=== PATIENT | male | born 1980 | race Caucasian/White ===

== ENCOUNTER 2017-12-27 16:41 | Inpatient (IN) ==
[2017-12-27] MEDS ORDERED: Naloxone 0.4 MG/ML INJ IVP PRN (20:21)
[2017-12-27] MEDS ORDERED: *HR* OxyCODONE Immed Rel 5 MG TABLET PO PRN (20:21)
[2017-12-27] MEDS ORDERED: traMADol 50 MG TABLET PO PRN (20:21)
[2017-12-27] MEDS ORDERED: Acetaminophen 325 MG TABLET PO PRN (20:21)
[2017-12-27] MEDS ORDERED: 0.9 % Sodium Chloride w KCl 20 MEQ/1,000 ML MLS IVC SCH (20:30)
[2017-12-27] MEDS ORDERED: Vancomycin (wt based) 1,000 MG VIAL IVPB SCH (21:00)
[2017-12-27] MEDS: 0.9 % Sodium Chloride 1,000 ML IVC SCH (21:03)
--- NOTE | 2017-12-27 21:08 | Orthopedic Consult Note ---
Date of Encounter: 12/27/17 Time of Encounter: 21:06 History of Present Illness Chief complaint: Left arm pain and swelling with numbness in fingers HPI: Mr. Price is a 37 year old [id number] male with about a 3-4 day history of pain and swelling about the left arm especially focused at the elbow. Patient states that he had self injected methamphetamine in the left arm. He noticed progressive pain and swelling and difficulty with range of motion. He also states that he had injured it the night before when he fell. He also describes diminished sensation in all the fingers. He was seen initially a [facility] and was noted to have a significant infection in the left upper extremity, sent to [facility] for definitive management. I reviewed the patient's history and physical data as well as the completed medical record including all studies completed including [facility]. Patient's orthopedic history is significant for a total hip arthroplasty with an infection requiring explantation, intravenous antibiotics and then a secondary replantation of his hip prosthesis. Pulse of approximately 115 and a temperature of 100.1. Examination of the left upper extremity reveals the upper arm to be edematous though the compartments are soft. The left elbow reveals marked tenderness and fullness in what appears to be a fluctuant area on the medial side of the elbow. There is fluid in the olecranon bursa as well. Forearm is somewhat tight. Movement of the fingers and hand is intact. There are scattered small scabs about the arm. Laboratory data obtained today at [facility] included a WBC count of 29.1 with 24% neutrophils. Pro time was slightly elevated at 14. He did had not have an elevated CK at 247. Drug screen was positive for amphetamines and THC. I reviewed the images of a CT scan. This reveals a large area along the medial aspect of the elbow consistent with a abscess cavity. There is significant edema within the soft tissues of the forearm. No definitive abscess within the extensor compartment. Significant anomalies present within the flexor aspect of the forearm. Sensation is grossly intact with some subjective diminished sensation. Finger motion is intact though painful. Appears to be spared vascular status. Impression: Abscess left elbow with possible volar forearm compartment involvement Recommendations: Would proceed with urgent incision and drainage of the arm. This would include the elbow and possibly more extension into the forearm depending upon the appearance of the compartments. Patient is aware that he may require multiple procedures and he may not have definitive treatment with a singular procedure. Patient has been started on intravenous antibiotics. Going to proceed with surgery tonight when operating room staff arrives. I did career guidance counselor the patient on the concerns for infection in a prosthetic joint. He is already sustained an infection with a staged explantation and reimplantation. I did advise him that he may not be able to have this done again due to bone loss or other concerns. Thank you for allowing me to seen care for Mr. Price. Sincerely, Heber Kaur,DO Past Med Surg Social Fam HX - Past Medical History Medical history: non-contributory Psychiatric history: no psych history - Past Surgical History Additional surgical history: left shoulder. left hip replacement X 3. dental - Social History Smoking Status: Former smoker Smokeless Tobacco Status: No Alcohol use: none Drug use: unknown - Family History Mother Living Status: Still Living Hx Family Cardiac Disorders: No Hx Family Respiratory Disorders: No Hx Family Cancer: No Hx Family GI Disorders: No Hx Family Genitourinary Disorders: No Hx Family Endocrine Disorder: No Hx Family Musculoskeletal Disorders: No Hx Family Neuromuscular Disorders: No Hx Family Neurologic Disorders: No Hx Family HEENT Disorders: No Hx Family Autoimmune Disorders: No Hx Family Reproductive Disorders: No Hx Family Psychosocial Disorders: No Hx Family Medical Disorders: No Medications and Allergies No Known Home Drugs 12/27/17 [History] 3 Allergy/AdvReac Type Severity Reaction Status Date / Time sulfamethoxazole Allergy Anaphylaxis Verified 06/19/15 14:27 [From Bactrim] trimethoprim [From Bactrim] Allergy Anaphylaxis Verified 06/19/15 14:27 All Systems Reviewed: The remainder of the systems were reviewed and are negative Physical Exam - Constitutional Vitals: Temp Pulse Resp BP Pulse Ox 100.1 F H 114 14 127/97 97 12/27/17 20:12 12/27/17 20:12 12/27/17 20:12 12/27/17 20:12 12/27/17 20:12 Results - Labs Labs: All other labs normal. Consult Discharge Plan - Plan Referrals: NONE,PCP [Primary Care Provider] -
--- NOTE | 2017-12-27 21:45 | Anesthesia Evaluation PreOp ---
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: Denies Any Significant HX Other Medical History: Denies Any Significant HX Anesthesia History: No Prior Anesthetic Complications Alcohol Use: none Drug use: unknown Medications and Allergies No Known Home Drugs 12/27/17 [History] 3 Allergy/AdvReac Type Severity Reaction Status Date / Time sulfamethoxazole Allergy Anaphylaxis Verified 06/19/15 14:27 [From Bactrim] trimethoprim [From Bactrim] Allergy Anaphylaxis Verified 06/19/15 14:27 - Meds/Allergy Pre-op Review Medications Reviewed: Yes Allergies Reviewed: Yes Beta Blockers on Current Med List: No Anesthesia Results - Labs Laboratory Tests 12/27/17 12/27/17 13:34 13:34 Hgb 14.7 Hct 43.0 Plt Count 320 Sodium 130 L Potassium 3.8 BUN 6 Creatinine 0.70 Anesthesia Exam O2 Sat O2 Sat by Pulse Oximetry 97 Vital Signs Temp Pulse Resp BP Pulse Ox 100.1 F H 114 14 127/97 97 12/27/17 20:12 12/27/17 20:12 12/27/17 20:12 12/27/17 20:12 12/27/17 20:12 Height: 5'3 Weight: 160 lbs Pain Scale: 3 - HEENT Pupil (Motor): Pupils equal, EOMI Mallampati: I Oral Opening: Greater than 3 - BURRING WHEEL OPERATOR LOC: Oriented BURRING WHEEL OPERATOR Motor: Normal RUE, Normal LUE, Normal RLE, Normal LLE, Normal Face BURRING WHEEL OPERATOR Sensory: Normal: RUE, LUE, RLE, LLE, Face - Cardiac Rhythm: Regular Murmur: None JVD: No Carotid Bruit: No - Pulmonary Breath Sounds: bilateral Clear Respiratory Effort: Symmetrical Anesthesia Assess/Plan ASA Score: 2, E Modified [place] Scale for Level of Consciousness: Cooperative, oriented, and tranquil Anesthetic Plan: General Monitoring Plan: Standard Monitors Recovery Plan: PACU (Discussed GA, agrees to proceed)
[2017-12-27] MEDS ORDERED: *HR* Propofol 200 MG/20 ML VIAL IVP ONE (21:53)
[2017-12-27] MEDS ORDERED: Ondansetron 4 MG/2 ML VIAL ONE (21:53)
[2017-12-27] MEDS ORDERED: *HR* FentaNYL (PF) 100 MCG/2 ML VIAL ONE (21:53)
[2017-12-27] MEDS ORDERED: Lidocaine -MPF 2% 2 ML VIAL ONE (21:53)
[2017-12-27] MEDS ORDERED: Dexamethasone 4 MG/ML VIAL ONE (21:53)
[2017-12-27 21:54] LABS: INR 1.3; Prothrombin Time 14.5 Seconds (9.4-12.1)
[2017-12-27] MEDS ORDERED: Famotidine 20 MG/2 ML VIAL ONE (21:55)
[2017-12-27] MEDS ORDERED: Acetaminophen IV 1,000 MG/100 ML INFUS..BTL ONE (21:55)
[2017-12-27 21:57] LABS: Activated Partial Thrombo Time 31.8 Seconds (26.0-36.0)
--- NOTE | 2017-12-27 21:58 | Internal Med History&Physical ---
Date of Encounter: 12/27/17 Time of Encounter: 20:00 Internal Medicine - H&P: HPI Chief complaint: left elbow pain/swelling Admitted From: Hospital to Hospital Transfer Plans for Post Hospital Care: Home History of present illness: Mr. Price is a 37 year old male who [facility] for concerns of left elbow abscess, cellulitis, and possible development of compartment syndrome. Symptoms started about 3-4 days ago when he was shooting up methamphetamine into his left elbow. Because of the pain, swelling, redness, and intensity over last few days, he came to ER today at [facility]. He underwent CAT scan imaging, routine labs, and IV antibiotic administration. Transfer request was [facility] to [facility] for definitive care. Transfer center spoke with Dr. Kaur and our daytime hospitalist who agreed to accept patient in transfer. Upon arrival, I saw patient immediately and assessed him. He confirms above history. He has been having significant pain and swelling to his left elbow. By my assessment, clinically, I do not feel he has compartment syndrome as he has palpable pulse of his left radial artery and is able to move his hand. However, he does have a decreased pulse compared his right arm. Additionally, he does have tense swelling and pain of his left forearm. I called Dr. Kaur right away after assessing the patient. Dr. Kaur has arrived to the hospital already and is taking him to surgery this evening. Patient admits to having had fevers and chills. He denies any numbness of his left hand/forearm. However, he does complain of weakness and worsening pain and pressure of his forearm. He denies any chronic medical problems. However, he did have a hip replacement several years ago. This was infected and had to be removed surgically and then he had to have another hip replacement several weeks thereafter. He completed 10 weeks of IV antibiotics prior to his reimplanted hip prosthesis. He denies any history of endocarditis, HIV, hepatitis B, hepatitis C. He uses heroin roughly twice per week by injection and seldom uses methamphetamine. Past Med Surg Social Fam HX - Past Medical History Attestation: Yes The following information was validated with the patient. Source: patient, old records reviewed, other ([facility] records) Medical history: no medical history Additional medical history: chronic IVDA Psychiatric history: no psych history - Past Surgical History Surgical History: hip replacement Additional surgical history: left shoulder. left hip replacement X 3. dental - Social History Smoking Status: Former smoker Smokeless Tobacco Status: No Alcohol use: none Drug use: methamphetamine, IV Drug Use (mostly heroin) Activity Level: Independent ambulation Recent Out of Country Travel Within the Last 8 Weeks: No - Family History Mother Living Status: Still Living Hx Family Cardiac Disorders: No Hx Family Respiratory Disorders: No Hx Family Cancer: No Hx Family GI Disorders: No Hx Family Genitourinary Disorders: No Hx Family Endocrine Disorder: No Hx Family Musculoskeletal Disorders: No Hx Family Neuromuscular Disorders: No Hx Family Neurologic Disorders: No Hx Family HEENT Disorders: No Hx Family Autoimmune Disorders: No Hx Family Reproductive Disorders: No Hx Family Psychosocial Disorders: No Hx Family Medical Disorders: No Internal Medicine - H&P: Meds No Known Home Drugs 12/27/17 [History] 3 Allergy/AdvReac Type Severity Reaction Status Date / Time sulfamethoxazole Allergy Anaphylaxis Verified 06/19/15 14:27 [From Bactrim] trimethoprim [From Bactrim] Allergy Anaphylaxis Verified 06/19/15 14:27 - Constitutional Constitutional: chills, fever(s), no night sweats - EENT Eyes: no change in vision Ears: no ear pain, no tinnitus Nose, mouth and throat: no nasal congestion, no sinus pressure, no sore throat - Cardiovascular Cardiovascular ROS IM: no chest pain, no dyspnea - Respiratory Respiratory: no cough, no hemoptysis, no chest congestion, no excessive phlegm production - Gastrointestinal Gastrointestinal: nausea, no abdominal pain, no diarrhea, no hematemesis, no hematochezia, no melena, no vomiting - Genitourinary Genitourinary ROS male: no dysuria, no flank pain, no hematuria - Musculoskeletal Musculoskeletal ROS IM: arthralgias (left elbow), limited range of motion (left arm), muscle weakness (left hand/forearm), no numbness - Integumentary Integumentary IM: no jaundice - Neurological Neurological ROS: no convulsions, no dizziness, no frequent falls, no headache(s ) - Psychiatric Psychiatric: no anxiety, no depression - Endocrine Endocrine IM: no polydipsia, no polyuria - Allergic/Immunologic Allergic/Immunologic: no wheezing, no GI upset with certain foods - Constitutional Vitals: Temp Pulse Resp BP Pulse Ox 100.1 F H 114 14 127/97 97 12/27/17 20:12 12/27/17 20:12 12/27/17 20:12 12/27/17 20:12 12/27/17 20:12 General appearance: Present: cooperative, A&O X 3, severe distress (left elbow/ forearm pain), answers questions appropriately Exam: see below - Head Head exam: Present: atraumatic, normal inspection - Eye Eye exam: Present: EOMI, PERRL. Absent: scleral icterus Pupils: Present: normal accommodation - ENT ENT exam: Present: mucous membranes dry, normal oropharynx Additional comments: poor dentition with several caries/missing teeth - Neck Neck exam general surgery: Present: full ROM, supple. Absent: tenderness, nuchal rigidity, thyromegaly - Respiratory Respiratory exam: Present: CTAB. Absent: chest wall tenderness, rales, rhonchi , wheezes - Cardiovascular Cardiovascular exam: Present: distant heart sounds, RRR, +S1, +S2, tachycardia. Absent: diastolic murmur, systolic murmur - GI/Abdominal GI/Abdominal exam: Present: normal bowel sounds, soft. Absent: hepatomegaly, mass, splenomegaly, tenderness - Extremities Exam Extremities exam: Present: normal capillary refill, warm. Absent: calf tenderness, pedal edema Additional comments: left elbow/forearm red, warm, tense, very tender with very limited ROM; palpable left radial pulse (weaker than right); normal sensation; weakness in left hand compared to right - Back Exam Back exam: Absent: CVA tenderness (L), CVA tenderness (R) - Neurological Exam Neurological exam: Present: alert, CN II-XII intact, oriented X3 Additional comments: weakness left hand/forearm as noted above - Psychiatric Psychiatric exam: Present: normal affect, normal mood - Skin Skin exam: Present: dry, warm Additional comments: cellulitis/abscess left elbow/forearm Internal Med - H&P Results - Labs Labs: I reviewed the labs a Mona and they include the following: WBC 29.1 Hemoglobin 14.7 Hematocrit 43.0 Platelet 320 PT 14.0 INR 1.2 Sodium 130 Potassium 3.8 Chloride 98 Carbon dioxide 22 BU when 6 Creatinine 0.70 Glucose [address] left arm/elbow: Report reviewed concerning for cellulitis, flexor and extensor myositis with compartment myositis. Additionally, is a 5.7 centimeter abscess of the left medial elbow. - Assessment and plan (1) Severe sepsis Current Visit: Yes Status: Acute Assessment and plan: 1. Blood cultures ordered. 2. Fluid resuscitation ordered. 3. Will trend lactate levels. 4. Will treat with IV Vancomycin and Zosyn. 5. Follow blood cultures and wound cultures from surgery. 6. Likely needs if blood cultures +; high concern for tricuspid valve endocarditis. 7. Monitor on telemetry. 8. Continue maintenance IVF after fluid boluses. (2) Abscess of skin or subcutaneous tissue Current Visit: Yes Status: Acute Assessment and plan: 1. I spoke and met with Dr. Kaur who saw patient shortly after I saw him. 2. Patient is going to surgery this evening per Dr. Kaur. 3. Wound cultures in OR. 4. Antibiotics as above. Qualifiers: Site of cutaneous abscess: extremity Site of cutaneous abscess of extremity : upper extremity Laterality: left Qualified Code(s): L02.414 - Cutaneous abscess of left upper limb (3) Substance abuse Current Visit: Yes Status: Chronic Assessment and plan: 1. Patient counseled on the need to quit/seek treatment. 2. Patient at risk for heroin withdrawal. 3. Will treat pain with tramadol (moderate) and oxycodone (severe). He may need IV Opiate pain control. 4. Monitor for signs/symptoms of endocarditis. 5. Consult social scientist to assist for drug rehab if he is interested. (4) DVT prophylaxis Current Visit: Yes Status: Acute Assessment and plan: 1. Heparin SQ.
[2017-12-27] MEDS ORDERED: Acetaminophen IV 1,000 MG/100 ML INFUS..BTL IVPB ONE (22:06)
[2017-12-27] MEDS ORDERED: Famotidine 20 MG/2 ML VIAL IVP ONE (22:06)
[2017-12-27] MEDS ORDERED: Albuterol 2.5 MG/3 ML NEBULIZER IH ONE (22:07)
[2017-12-27] MEDS ORDERED: Albuterol 2.5 MG/3 ML NEBULIZER ONE (22:08)
[2017-12-27] MEDS ORDERED: *HR* HYDROmorphone (PF) 1 MG/ML SYRINGE ONE (22:16)
[2017-12-27] MEDS ORDERED: Ketorolac 30 MG/ML VIAL ONE (23:09)
--- NOTE | 2017-12-27 23:30 | Operative Note ---
Date of procedure: 12/27/17 Pre-op diagnosis: Abscess left elbow Post-op diagnosis: same Procedure: 1. Incision and drainage left elbow and forearm 2. Incision and drainage left olecranon bursa Implants: None Complications: None Anesthesia: BERNARDA Surgeon: Heber Kaur Was there an optical assistant present: No Estimated blood loss (cc): 17 Tourniquet Time (Minutes): 27 (250 mmHg) Specimen: Cultures Condition: stable Disposition: PACU Procedure in Detail: Gross findings: Preoperative examination revealed tremendous amount of swelling in the left forearm with a fluctuant area along the medial side of the elbow and in the proximal third of the volar aspect of the forearm. Preoperative CT scanning was consistent with an abscess in the medial aspect of the left elbow. Intraoperative findings revealed tremendous amount of edema in the subcutaneous tissues with a large abscess cavity at the medial aspect of the elbow just anterior to the medial upper condyle. Large amount of purulent material was encountered and evacuated. The abscess was noted to extend into the antecubital fossa and into the forearm compartment. This was dissected with blunt finger dissection. A second incision and drainage site was created over the radial volar forearm where the compartment was opened where a large amount of edema fluid was again encountered and digital dissection was carried over from both the medial elbow and from this incision to allow for irrigation through the tunnels. The olecranon bursa was full of fluid and went opened revealed a marked amount of bursal fluid without purulence. All 3 wounds were packed with iodoform packing. The medial elbow and the volar forearm wound had a few suture of 3-0 Prolene placed to loosely approximate a portion of the wound. Procedure: Patient was taken the operating room and transferred from the hospital bed to the operating room table. Patient now was administered a general anesthesia with smooth induction with atraumatic intubation. Once adequate level anesthesia had been obtained, the left upper extremity is prepped and draped in normal standard fashion with a tourniquet placed high about the upper arm in a sterile fashion. The tourniquet was inflated after the arm was elevated for exsanguination. Approximately 4 cm incision was created over the medial aspect of the elbow. This was just anterior to the medial upper condyle. The very thick subcutaneous tissue was noted with tremendous amount of inflammatory changes and edema. Dissection was ultimately carried bluntly into the abscess cavity was a large amount of thick purulent material was encountered. Cultures were obtained at this time. The cavity was evacuated of fluid and irrigated initially. Due to persistent swelling in the more volar and distal forearm a second incision was created in the radial volar aspect of the forearm proximally. Dissection was carried to the subtendinous tissue again a thickened subtendinous tissue was noted. Marked edema fluid was encountered. The fascia was opened and the muscle appeared to be intact with the [place] of swelling and edema noted. From the medial elbow digital dissection was performed breaking up some septations and allowing more purulent material to be expressed. Finger dissection was carried from the second incision meeting the opposite hand and at this time a tunnel was created. This was now irrigated with saline solution removing as much debris and purulent material as able. This was completed until the swelling flowed clear. At this time the olecranon bursa was noted be markedly fluid filled therefore approximately 1/2 cm incision was made directly over the bursa with chapito fluid expressed. This was evacuated. At this time all wounds are now packed with 1/2 inch iodoform packing. The volar forearm the medial elbow incision with then loosely approximated with just a few suture of 3-0 Prolene. Sterile dressings consisting of 4 x 4's Kerlix and ABDs were now applied and secured. Tourniquet was now deflated. Patient was now awakened from anesthesia extubating operating room and transferred to the postanesthesia care unit in stable and satisfactory condition. All sponge and needle evidence for counts are correct. Specimens for pathology were the cultures obtained.
--- NOTE | 2017-12-27 23:50 | Anesthesia Evaluation Post Op ---
Date of Encounter: 12/27/17 Time of Encounter: 23:50 - Vital Signs Vital Signs: Vital Signs/O2 Sat/Glucose, Most Current Temp Pulse Resp BP Pulse Ox 12/27/17 23:42 104 16 143/93 94 12/27/17 23:32 105 10 134/89 96 12/27/17 23:22 98.3 F 96 10 129/77 99 12/27/17 20:12 100.1 F H 114 14 127/97 97 - Lungs Lungs: Clear Ascult./Percussion - Airway Airway: Non-obstructed - Cardiovascular Regular Rate - Mental Status Mental Status: Alert & Oriented, Answers Appropriately - Pain Pain Scale: 1 - Nausea Vomiting Nausea Vomiting: Not Present - Hydration Hydration: Ice chips - Discharge PostOp Status: Transfer Patient to floor
[2017-12-28] MEDS ORDERED: Piperacillin/Tazobactam 3.375 GM in 0.9 % Sodium Chloride Mini Bag 100 ML IVPB SCH
[2017-12-28] MEDS ORDERED: Acetaminophen 325 MG TABLET PO PRN (00:24)
[2017-12-28] MEDS ORDERED: Famotidine 20 MG/2 ML VIAL IVP ONE (00:24)
[2017-12-28] MEDS ORDERED: Naloxone 0.4 MG/ML INJ IVP PRN (00:24)
[2017-12-28] MEDS ORDERED: Acetaminophen IV 1,000 MG/100 ML INFUS..BTL IVPB ONE (00:24)
[2017-12-28 01:05] LABS: Basophils # 0.1 K/mcL (0.0-0.2); Basophils % 0.3 %; Eosinophils # 0.1 K/mcL (0.0-0.6); Eosinophils % 0.3 %; Hematocrit 39.7 % (37.5-50.1); Hemoglobin 13.3 g/dL (12.9-16.9); Immature Granulocytes % 0.9 % (0-4); Lymphocytes # 0.9 K/mcL (0.6-4.6); Lymphocytes % 4.6 %; Mean Corpuscular HGB Conc 33.5 g/dL (31.6-35.5); Mean Corpuscular Hemoglobin 31.8 pg (28.0-33.3); Mean Platelet Volume 10.1 fL (9.4-12.4); Monocytes # 1.1 K/mcL (0.0-1.3); Monocytes % 5.3 %; Neutrophils # 18.3 K/mcL (1.6-8.9); Platelet Count 236 K/mcL (140-400); Red Blood Count 4.18 M/mcL (4.19-5.50); Red Cell Distribution Width 13.8 % (11.5-14.5); Segmented Neutrophils % 88.6 %
[2017-12-28] MEDS: 0.9 % Sodium Chloride 1,000 ML IVC SCH ×2 (01:16→07:16)
[2017-12-28 01:27] LABS: Alanine Aminotransferase 44 Units/L (7-52); Albumin 2.9 g/dL (3.5-5.7); Albumin/Globulin Ratio 0.9 (1.1-2.2); Alkaline Phosphatase 26 Units/L (34-104); Aspartate Amino Transferase 33 Units/L (13-39); BUN/Creatinine Ratio 10 (6-26); Bilirubin,Total 0.5 mg/dL (0.3-1.0); Blood Urea Nitrogen 6 mg/dL (6-20); Carbon Dioxide 23 mEq/L (23-29); Chloride 106 mEq/L (98-107); Globulin 3.1 g/dL (2.4-3.5); Glucose 125 mg/dL (70-105); Magnesium 1.5 mg/dL (1.6-2.6); Osmolality,Calculated 281 (280-300); Potassium 3.8 mEq/L (3.5-5.1); Sodium 136 mEq/L (136-145); eGFR For Non-African Americans > 60 (> 60)
[2017-12-28] MEDS: 0.9 % Sodium Chloride w KCl 20 MEQ/1,000 ML MLS IVC SCH ×2 (01:31→08:48)
[2017-12-28] MEDS: Piperacillin/Tazobactam 3.375 GM in 0.9 % Sodium Chloride Mini Bag 100 ML IVPB SCH ×4 (01:38→23:08)
[2017-12-28] MEDS ORDERED: *HR* Heparin 5,000 UNIT/ML VIAL SQ SCH (06:00)
[2017-12-28] MEDS: *HR* Heparin 5,000 UNIT/ML VIAL SQ SCH ×2 (06:04→16:45)
[2017-12-28] MEDS: *HR* OxyCODONE Immed Rel 5 MG TABLET PO PRN ×2 (08:50→19:51)
[2017-12-28] MEDS: traMADol 50 MG TABLET PO PRN ×2 (12:19→23:08)
--- NOTE | 2017-12-28 13:33 | Internal Med Progress Note ---
Hospitalist Progress Note - Encounter Date of Encounter: 12/28/17 Time of Encounter: 13:20 - Subjective Interval History: H&P noted. Patient with a history of IV drug use is admitted for left elbow abscess, cellulitis, and possible development of compartment syndrome. Underwent I&D of left elbow, forearm as well as olecranon bursa last night. Intraoperatively, he was noted to have tremendous amount of edema in the subcutaneous tissues with a large abscess cavity at the medial aspect of the elbow. Another I&D at radial volar forearm. Large amount of bursal fluid without purulence. Started on broad-spectrum antibiotics overnight which patient is tolerating well. Other than mild, expected postop pain, he does not have any new complaints. Denies any fever or chills. - Exam Vitals: Temp Pulse Resp BP Pulse Ox 97.7 F 78 17 112/80 98 12/28/17 11:38 12/28/17 11:38 12/28/17 11:38 12/28/17 11:38 12/28/17 11:38 Exam: General appearance: Present: cooperative, A&O X 3 - Respiratory Respiratory exam: Present: CTAB. Absent: chest wall tenderness, rales, rhonchi , wheezes - Cardiovascular Cardiovascular exam: Present: distant heart sounds, RRR, +S1, +S2, tachycardia. Absent: diastolic murmur, systolic murmur - GI/Abdominal GI/Abdominal exam: Present: normal bowel sounds, soft. Absent: hepatomegaly, mass, splenomegaly, tenderness - Extremities Exam LUE: in sling, dressing clean and intact. Neurovascularly intact. - Assessment and Plan (1) Sepsis Current Visit: Yes Status: Acute Assessment and Plan: Presented with low-grade temperature of 99.4, tachycardia, and leukocytosis of > 20 in the setting of left elbow abscess and extensive left upper extremity myositis/cellulitis underwent I&D by ortho yesterday started on vanc/zosyn, continue CT of the left upper extremity also revealed a solitary 1.6 cm focus of consolidation in the left upper lobe which may represent pneumonia or possible developing septic emboli given his risk factors, will also obtain TTE -> may also need BAN if negative for vegetation blood cultures +ve for GPR, a/w final speciation and sensitivity intraop cultures pending WBC downtrending, not hypotensive, monitor clinically (2) Abscess of skin or subcutaneous tissue Current Visit: Yes Status: Inactive Assessment and Plan: Antibiotics as above, underwent I&D by orthopedics yesterday (3) Substance abuse Current Visit: Yes Status: Inactive Assessment and Plan: UDS positive for amphetamine and marijuana (4) DVT prophylaxis Current Visit: Yes Status: Acute Assessment and Plan: Heparin SQ - Time Spent with Patient Total time spent is greater than 50% in coordination of care (as documented) at patient's floor/unit and/or counseling patient: Plan of Care Discussed with: nurse Internal Medicine: Result - Labs CBC & Chem 7: 12/28/17 00:51 12/28/17 00:51 Labs: Short CBC 12/28/17 Range/Units 00:51 WBC 20.6 H (4.3-11.1) K/mcL Hgb 13.3 (12.9-16.9) g/dL Hct 39.7 (37.5-50.1) % Plt Count 236 (140-400) K/mcL Neutrophils # 18.3 H (1.6-8.9) K/mcL BMP 12/28/17 00:51 Sodium 136 Potassium 3.8 Chloride 106 Carbon Dioxide 23 BUN 6 Creatinine 0.63 L Glucose 125 H Calcium 8.0 L Liver Function 12/28/17 Range/Units 00:51 Total Bilirubin 0.5 (0.3-1.0) mg/dL AST 33 (13-39) Units/L ALT 44 (7-52) Units/L Alkaline Phosphatase 26 L (34-104) Units/L Albumin 2.9 L (3.5-5.7) g/dL - ABG Interpretation ABG results: PT/INR, D-dimer PT 14.5 Seconds (9.4-12.1) H 12/27/17 20:21 - VTE Documentation of Mechanical Device: Intermittent pneumatic compression device Consult Discharge Plan - Plan Referrals: NONE,PCP [Primary Care Provider] - (1) Sepsis Qualifiers: Sepsis type: sepsis due to unspecified organism Qualified Code(s): A41.9 - Sepsis, unspecified organism (2) Abscess of skin or subcutaneous tissue Qualifiers: Site of cutaneous abscess: extremity Site of cutaneous abscess of extremity: upper extremity Laterality: left Qualified Code(s): L02.414 - Cutaneous abscess of left upper limb
[2017-12-28] MEDS ORDERED: *HR* FentaNYL (PF) 100 MCG/2 ML VIAL IVP ONE (16:31)
--- NOTE | 2017-12-28 16:39 | Orthopedics Progress Note ---
Date of Encounter: 12/28/17 Time of Encounter: 16:35 Subjective Principal diagnosis: Abscess left arm Interval history: 12/28/2017. Patient is POD #1 (less than 24 hours) medial elbow abscess as well as incision and drainage of the olecranon bursa. Patient is feeling better. He is having some persistent numbness in all the fingers. Vital signs are stable. Patient is afebrile. Dressings were all taken down. Packing was removed. All wounds are healthy with no evidence of purulent drainage at this time. Minor serosanguineous drainage is emanating from the medial elbow wound. Distal neurosensory exam is mostly unchanged with predominantly subjective numbness. Forearm edema is improved. Hemoglobin is stable at 13.3. White blood cell count has dropped to 20.6. Neutrophils down to 18.3. Surgical cultures are pending. Impression POD #1 incision and drainage left elbow and forearm abscesses Recommendations: We will continue with dressing changes and wound care is necessary. I encouraged the patient to use an move his fingers as much as possible and to maintain elevation of the extremity. We will continue with the current IV antibiotics until a wound culture with the identification and sensitivities is available to fine tune the antibiotics selection. Objective Vital signs: Vital Signs Temp Pulse Resp BP Pulse Ox 12/28/17 11:38 97.7 F 78 17 112/80 98 12/28/17 09:16 96 12/28/17 09:00 98 12/28/17 07:37 97.8 F 90 18 115/80 98 12/28/17 05:15 97.6 F 85 18 110/66 97 12/28/17 01:44 98.4 F 96 16 127/80 96 12/28/17 00:32 98.4 F 105 16 139/73 94 12/28/17 00:02 98.3 F 98 16 138/90 93 12/27/17 23:52 98.7 F 105 16 143/88 94 12/27/17 23:42 104 16 143/93 94 12/27/17 23:32 105 10 134/89 96 12/27/17 23:22 98.3 F 96 10 129/77 99 12/27/17 20:12 100.1 F H 114 14 127/97 97 Intake and Output 12/28/17 12/28/17 12/28/17 07:59 15:59 23:59 Intake Total 1260 / 1260 480 / 480 Output Total 2350 / 2350 500 / 500 Balance -1090 / -1090 -20 / -20 Intake: IV Fluids 1200 / 1200 0.9 % Sodium Chloride 1,000 ML 1000 / 1000 @ 999 mls/hr IVC .Q1H1M [facility] [place] Rx# :[id number] Ofirmev 1,000 mg/100 ml 1,000 100 / 100 mg In 100 ml @ 400 mls/hr IVPB ONCE ONE Rx#:[id number] Zosyn 3.375 GM In 0.9 % Sodium 100 / 100 Chloride (Mini-Bag +) 100 ML @ 25 mls/hr IVPB Q8HR [facility] [place] Rx#: [id number] Oral 60 / 60 480 / 480 Output: Urine 2350 / 2350 500 / 500 Other: Meal Lunch Percent of Meal Consumed 100% # Voids 2 Weight 68.084 kg Patient Weight 12/28/17 23:59 Weight 68.084 kg Incision: draining - Labs CBC & BMP: 12/28/17 00:51 12/28/17 00:51 Labs: Abnormal lab results WBC 20.6 K/mcL (4.3-11.1) H 12/28/17 00:51 RBC 4.18 M/mcL (4.19-5.50) L 12/28/17 00:51 Neutrophils # 18.3 K/mcL (1.6-8.9) H 12/28/17 00:51 PT 14.5 Seconds (9.4-12.1) H 12/27/17 20:21 Creatinine 0.63 mg/dL (0.70-1.30) L 12/28/17 00:51 Glucose 125 mg/dL (70-105) H 12/28/17 00:51 Calcium 8.0 mg/dL (8.6-10.3) L 12/28/17 00:51 Magnesium 1.5 mg/dL (1.6-2.6) L 12/28/17 00:51 Alkaline Phosphatase 26 Units/L (34-104) L 12/28/17 00:51 Serum Total Protein 6.0 g/dL (6.4-8.9) L 12/28/17 00:51 Albumin 2.9 g/dL (3.5-5.7) L 12/28/17 00:51 Albumin/Globulin Ratio 0.9 (1.1-2.2) L 12/28/17 00:51 - VTE Documentation of Mechanical Device: Intermittent pneumatic compression device Consult Discharge Plan - Plan Referrals: NONE,PCP [Primary Care Provider] -
[2017-12-29] MEDS: *HR* OxyCODONE Immed Rel 5 MG TABLET PO PRN ×4 (01:47→21:07)
[2017-12-29] MEDS: *HR* Heparin 5,000 UNIT/ML VIAL SQ SCH ×2 (05:42→17:39)
[2017-12-29 06:47] LABS: Basophils # 0.1 K/mcL (0.0-0.2); Basophils % 0.3 %; Eosinophils # 0.1 K/mcL (0.0-0.6); Eosinophils % 0.3 %; Hematocrit 38.9 % (37.5-50.1); Hemoglobin 13.2 g/dL (12.9-16.9); Immature Granulocytes % 0.7 % (0-4); Lymphocytes # 2.7 K/mcL (0.6-4.6); Lymphocytes % 11.7 %; Mean Corpuscular HGB Conc 33.9 g/dL (31.6-35.5); Mean Corpuscular Hemoglobin 32.1 pg (28.0-33.3); Mean Corpuscular Volume 94.6 fL (83.0-100.0); Mean Platelet Volume 10.2 fL (9.4-12.4); Monocytes # 1.3 K/mcL (0.0-1.3); Monocytes % 5.5 %; Neutrophils # 18.6 K/mcL (1.6-8.9); Platelet Count 314 K/mcL (140-400); Red Blood Count 4.11 M/mcL (4.19-5.50); Red Cell Distribution Width 13.7 % (11.5-14.5); Segmented Neutrophils % 81.5 %
[2017-12-29 07:05] LABS: BUN/Creatinine Ratio 17 (6-26); Blood Urea Nitrogen 11 mg/dL (6-20); Calcium 8.4 mg/dL (8.6-10.3); Carbon Dioxide 25 mEq/L (23-29); Chloride 106 mEq/L (98-107); Glucose 112 mg/dL (70-105); Osmolality,Calculated 282 (280-300); Potassium 4.2 mEq/L (3.5-5.1); Sodium 136 mEq/L (136-145); eGFR For Non-African Americans > 60 (> 60)
[2017-12-29] MEDS: Piperacillin/Tazobactam 3.375 GM in 0.9 % Sodium Chloride Mini Bag 100 ML IVPB SCH ×2 (08:17→15:55)
--- NOTE | 2017-12-29 11:28 | Internal Med Progress Note ---
Hospitalist Progress Note - Encounter Date of Encounter: 12/29/17 Time of Encounter: 09:55 - Subjective Interval History: States that his left arm pain and swelling has significantly improved. Numbness over the dorsum of his hand also better. No fever/chills or N/V. - Exam Vitals: Temp Pulse Resp BP Pulse Ox 98.1 F 80 18 118/84 99 12/29/17 03:45 12/29/17 03:45 12/29/17 03:45 12/29/17 03:45 12/29/17 03:45 Exam: General appearance: Present: cooperative, A&O X 3 - Respiratory Respiratory exam: Present: CTAB. Absent: chest wall tenderness, rales, rhonchi , wheezes - Cardiovascular Cardiovascular exam: Present: distant heart sounds, RRR, +S1, +S2, tachycardia. Absent: diastolic murmur, systolic murmur - GI/Abdominal GI/Abdominal exam: Present: normal bowel sounds, soft. Absent: hepatomegaly, mass, splenomegaly, tenderness - Extremities Exam LUE: in sling, dressing clean and intact. Neurovascularly intact. - Assessment and Plan (1) Sepsis Current Visit: Yes Status: Acute Assessment and Plan: Presented with low-grade temperature of 99.4, tachycardia, and leukocytosis of > 20 in the setting of left elbow abscess and extensive left upper extremity myositis/cellulitis underwent I&D by ortho 12/27, POD#2 CT of the left upper extremity also revealed a solitary 1.6 cm focus of consolidation in the left upper lobe which may represent pneumonia or possible developing septic emboli on D2 vanc/zosyn , continue 1 set blood culture +ve for GPR, a/w final speciation and sensitivity intraop cultures pending TTE negative for vegetation, will hold off on BAN unless repeat blood cultures are positive stable to transfer out of stepdown (2) Abscess of skin or subcutaneous tissue Current Visit: Yes Status: Inactive Assessment and Plan: Antibiotics as above, underwent I&D by orthopedics on 12/27, POD#2 follow up on intraop cultures (3) Substance abuse Current Visit: Yes Status: Inactive Assessment and Plan: UDS positive for amphetamine and marijuana (4) DVT prophylaxis Current Visit: Yes Status: Acute Assessment and Plan: Heparin SQ - Time Spent with Patient Total time spent is greater than 50% in coordination of care (as documented) at patient's floor/unit and/or counseling patient: Plan of Care Discussed with: nurse Internal Medicine: Result - Labs CBC & Chem 7: 12/29/17 06:26 12/29/17 06:26 Labs: Short CBC 12/29/17 Range/Units 06:26 WBC 22.9 H (4.3-11.1) K/mcL Hgb 13.2 (12.9-16.9) g/dL Hct 38.9 (37.5-50.1) % Plt Count 314 (140-400) K/mcL Neutrophils # 18.6 H (1.6-8.9) K/mcL BMP 12/29/17 06:26 Sodium 136 Potassium 4.2 Chloride 106 Carbon Dioxide 25 BUN 11 Creatinine 0.63 L Glucose 112 H Calcium 8.4 L - ABG Interpretation ABG results: PT/INR, D-dimer PT 14.5 Seconds (9.4-12.1) H 12/27/17 20:21 - Impressions Impressions Echocardiogram 12/28/17 08:10 Impressions: LVEF 60%. Normal LV chamber size, wall thickness and function. Normal left ventricular diastolic function. Normal right ventricular structure and function. No evidence of pulmonary hypertension. No significant valvular dysfunction. No obvious vegetations visualized. Recommend BAN if clinically indicated. Left Ventricular Wall Motion: Rest Echo Findings All wall segments showed normal motion. Findings: Study Quality * Technically sub-optimal due to poor echocardiographic windows. ECG Findings * Normal sinus rhythm. Left Ventricle * LVEF 60%. * Normal LV chamber size, wall thickness and function. * Normal left ventricular diastolic function. Right Ventricle * Normal right ventricular structure and function. Left Atrium * Normal left atrial size. Right Atrium * Normal right atrial size. Aortic Valve * Aortic valve not well visualized. * No aortic regurgitation. * No aortic stenosis. Mitral Valve * Normal mitral valve structure and function. * No mitral stenosis. * Trace mitral regurgitation. Tricuspid Valve * Normal tricuspid valve structure and function. * Trace tricuspid regurgitation. * No evidence of pulmonary hypertension. Pulmonic Valve * Pulmonic valve not well visualized. * No pulmonic regurgitation. Aorta * Normally sized aortic root. Pericardium * The pericardium appears normal. IVC * Normal IVC dimensions and inspiratory collapse. Pulmonary Artery * Normal visualized portions of the main pulmonary artery. - VTE Documentation of Mechanical Device: Graduated compression elastic hosiery Consult Discharge Plan - Plan Referrals: NONE,PCP [Primary Care Provider] - Erick Fields, MD SENIOR RESEARCH SCIENTIST [Advanced Practice Nurse] - (1) Sepsis Qualifiers: Sepsis type: sepsis due to unspecified organism Qualified Code(s): A41.9 - Sepsis, unspecified organism (2) Abscess of skin or subcutaneous tissue Qualifiers: Site of cutaneous abscess: extremity Site of cutaneous abscess of extremity: upper extremity Laterality: left Qualified Code(s): L02.414 - Cutaneous abscess of left upper limb
[2017-12-29] MEDS: traMADol 50 MG TABLET PO PRN (17:43)
--- NOTE | 2017-12-29 19:55 | Orthopedics Progress Note ---
Date of Encounter: 12/29/17 Time of Encounter: 19:52 Subjective Principal diagnosis: Abscess left arm Interval history: 12/28/2017. Patient is POD #1 (less than 24 hours) medial elbow abscess as well as incision and drainage of the olecranon bursa. Patient is feeling better. He is having some persistent numbness in all the fingers. Vital signs are stable. Patient is afebrile. Dressings were all taken down. Packing was removed. All wounds are healthy with no evidence of purulent drainage at this time. Minor serosanguineous drainage is emanating from the medial elbow wound. Distal neurosensory exam is mostly unchanged with predominantly subjective numbness. Forearm edema is improved. Hemoglobin is stable at 13.3. White blood cell count has dropped to 20.6. Neutrophils down to 18.3. Surgical cultures are pending. Impression POD #1 incision and drainage left elbow and forearm abscesses Recommendations: We will continue with dressing changes and wound care is necessary. I encouraged the patient to use an move his fingers as much as possible and to maintain elevation of the extremity. We will continue with the current IV antibiotics until a wound culture with the identification and sensitivities is available to fine tune the antibiotics selection. 12/29/2017. Patient POD #2 incision and drainage of a left medial elbow and forearm abscess. He is feeling much better. The numbness is still present though is resolving. Vital signs are stable. Patient is afebrile. Wounds are healthy without purulence. Significant improvement in the edema and erythema. Neurosensory exam is improved as well. Operative cultures are still pending. Patient does have gram-positive rods in his blood culture specimen. This was from specimens taken at [facility]. White blood cell count remains remarkably elevated still at 22.9 with 18.6 neutrophils. Impression: POD #2 incision and drainage left elbow and forearm. Orthopedic status is improved. Recommendations: Continue with dressing changes and wound care. Patient continues to see improvement in overall function and appearance of the arm and hand. Would continue with the current IV antibiotics until we have complete identification and sensitivities of the organism. In regards to the patient's persistent elevated WBC count would have to consider a mother etiology though the patient does have bacteremia and possibly a pulmonary source. Objective Vital signs: Vital Signs Temp Pulse Resp BP Pulse Ox 12/29/17 15:43 98.5 F 97 18 114/79 99 12/29/17 11:27 97.5 F L 80 16 94/59 100 12/29/17 03:45 98.1 F 80 18 118/84 99 12/28/17 23:00 98.3 F 87 18 119/74 97 12/28/17 20:50 98.7 F 87 14 133/93 96 Intake and Output 12/29/17 12/29/17 12/29/17 07:59 15:59 23:59 Intake Total 460 / 460 460 / 460 Output Total 1050 / 1050 1200 / 1200 Balance -590 / -590 -740 / -740 Intake: IV Fluids 100 / 100 100 / 100 Zosyn 3.375 GM In 0.9 % Sodium 100 / 100 100 / 100 Chloride (Mini-Bag +) 100 ML @ 25 mls/hr IVPB Q8HR [facility] Rx#: [id number] Oral 360 / 360 360 / 360 Output: Urine 1050 / 1050 1200 / 1200 Other: Meal Breakfast Percent of Meal Consumed 100% # Bowel Movements 0 Weight 60.98 kg Patient Weight 12/29/17 23:59 Weight 60.98 kg - Labs CBC & BMP: 12/29/17 06:26 12/29/17 06:26 Labs: Abnormal lab results WBC 22.9 K/mcL (4.3-11.1) H 12/29/17 06:26 RBC 4.11 M/mcL (4.19-5.50) L 12/29/17 06:26 Neutrophils # 18.6 K/mcL (1.6-8.9) H 12/29/17 06:26 PT 14.5 Seconds (9.4-12.1) H 12/27/17 20:21 Creatinine 0.63 mg/dL (0.70-1.30) L 12/29/17 06:26 Glucose 112 mg/dL (70-105) H 12/29/17 06:26 Calcium 8.4 mg/dL (8.6-10.3) L 12/29/17 06:26 Magnesium 1.5 mg/dL (1.6-2.6) L 12/28/17 00:51 Alkaline Phosphatase 26 Units/L (34-104) L 12/28/17 00:51 Serum Total Protein 6.0 g/dL (6.4-8.9) L 12/28/17 00:51 Albumin 2.9 g/dL (3.5-5.7) L 12/28/17 00:51 Albumin/Globulin Ratio 0.9 (1.1-2.2) L 12/28/17 00:51 - VTE Documentation of Mechanical Device: Graduated compression elastic hosiery Consult Discharge Plan - Plan Referrals: NONE,PCP [Primary Care Provider] - Erick Fields, TICKET WORKER [Advanced Practice Nurse] -
[2017-12-30] MEDS: Piperacillin/Tazobactam 3.375 GM in 0.9 % Sodium Chloride Mini Bag 100 ML IVPB SCH ×2 (01:31→08:04)
[2017-12-30] MEDS: *HR* OxyCODONE Immed Rel 5 MG TABLET PO PRN ×3 (03:23→18:35)
[2017-12-30] MEDS: *HR* Heparin 5,000 UNIT/ML VIAL SQ SCH ×2 (05:23→17:56)
[2017-12-30 06:49] LABS: Basophils # 0.1 K/mcL (0.0-0.2); Basophils % 0.6 %; Eosinophils # 0.3 K/mcL (0.0-0.6); Eosinophils % 2.3 %; Hematocrit 43.1 % (37.5-50.1); Hemoglobin 14.4 g/dL (12.9-16.9); Immature Granulocytes % 0.5 % (0-4); Lymphocytes # 3.3 K/mcL (0.6-4.6); Lymphocytes % 24.8 %; Mean Corpuscular HGB Conc 33.4 g/dL (31.6-35.5); Mean Corpuscular Hemoglobin 31.7 pg (28.0-33.3); Mean Corpuscular Volume 94.9 fL (83.0-100.0); Mean Platelet Volume 9.9 fL (9.4-12.4); Monocytes # 1.2 K/mcL (0.0-1.3); Neutrophils # 8.4 K/mcL (1.6-8.9); Platelet Count 382 K/mcL (140-400); Red Blood Count 4.54 M/mcL (4.19-5.50); Red Cell Distribution Width 13.7 % (11.5-14.5); Segmented Neutrophils % 62.8 %
[2017-12-30 07:02] LABS: BUN/Creatinine Ratio 14 (6-26); Blood Urea Nitrogen 11 mg/dL (6-20); Calcium 8.7 mg/dL (8.6-10.3); Carbon Dioxide 26 mEq/L (23-29); Chloride 104 mEq/L (98-107); Glucose 86 mg/dL (70-105); Magnesium 1.8 mg/dL (1.6-2.6); Osmolality,Calculated 279 (280-300); Potassium 4.1 mEq/L (3.5-5.1); Sodium 135 mEq/L (136-145); eGFR For Non-African Americans > 60 (> 60)
[2017-12-30] MEDS: traMADol 50 MG TABLET PO PRN ×2 (08:04→16:00)
[2017-12-30 11:51] LABS: Platelet Estimate Normal (Normal)
--- NOTE | 2017-12-30 16:43 | Internal Med Progress Note ---
Hospitalist Progress Note - Encounter Date of Encounter: 12/30/17 Time of Encounter: 15:50 - Subjective Interval History: Left arm pain and swelling continues to improve, anxious to go home. Numbness over the dorsum of his hand also better. No fever/chills or N/V. - Exam Vitals: Temp Pulse Resp BP Pulse Ox 98.2 F 95 16 112/75 98 12/30/17 15:53 12/30/17 15:53 12/30/17 15:53 12/30/17 15:53 12/30/17 15:53 Exam: General appearance: Present: cooperative, A&O X 3 - Respiratory Respiratory exam: Present: CTAB. Absent: chest wall tenderness, rales, rhonchi , wheezes - Cardiovascular Cardiovascular exam: Present: distant heart sounds, RRR, +S1, +S2, tachycardia. Absent: diastolic murmur, systolic murmur - GI/Abdominal GI/Abdominal exam: Present: normal bowel sounds, soft. Absent: hepatomegaly, mass, splenomegaly, tenderness - Extremities Exam LUE: in sling, dressing clean and intact. Neurovascularly intact. - Assessment and Plan (1) Sepsis Current Visit: Yes Status: Acute Assessment and Plan: Presented with low-grade temperature of 99.4, tachycardia, and leukocytosis of > 20 in the setting of left elbow abscess and extensive left upper extremity myositis/cellulitis underwent I&D by ortho 12/27, POD#3 CT of the left upper extremity also revealed a solitary 1.6 cm focus of consolidation in the left upper lobe which may represent pneumonia or possible developing septic emboli 1 set blood culture +ve for GPR, a/w final speciation and sensitivity, repeat c/ s later that day NGTD intraop cultures growing GPC likely strep will d/c zosyn, continue vanc for now TTE negative for vegetation, will hold off on BAN unless repeat blood cultures are positive Patient may sign out AMA; if he does, please give him a script for PO Augmentin 875mg BID for 5 more days and follow up outpatient with repeat CT chest and ortho follow up. (2) Abscess of skin or subcutaneous tissue Current Visit: Yes Status: Inactive Assessment and Plan: Antibiotics as above, underwent I&D by orthopedics on 12/27, POD#3 follow up on intraop cultures, growing GPC for now called [employer]bio to verify when the final c/s will be available, possibly tomorrow (3) Substance abuse Current Visit: Yes Status: Inactive Assessment and Plan: UDS positive for amphetamine and marijuana (4) DVT prophylaxis Current Visit: Yes Status: Acute Assessment and Plan: Heparin SQ - Time Spent with Patient Total time spent is greater than 50% in coordination of care (as documented) at patient's floor/unit and/or counseling patient: Plan of Care Discussed with: nurse Internal Medicine: Result - Labs CBC & Chem 7: 12/30/17 06:11 12/30/17 06:11 Labs: Short CBC 12/30/17 Range/Units 06:11 WBC 13.4 H (4.3-11.1) K/mcL Hgb 14.4 (12.9-16.9) g/dL Hct 43.1 (37.5-50.1) % Plt Count 382 (140-400) K/mcL Neutrophils # 8.4 (1.6-8.9) K/mcL BMP 12/30/17 06:11 Sodium 135 L Potassium 4.1 Chloride 104 Carbon Dioxide 26 BUN 11 Creatinine 0.78 Glucose 86 Calcium 8.7 - ABG Interpretation ABG results: PT/INR, D-dimer PT 14.5 Seconds (9.4-12.1) H 12/27/17 20:21 - VTE Documentation of Mechanical Device: Graduated compression elastic hosiery Consult Discharge Plan - Plan Referrals: NONE,PCP [Primary Care Provider] - Erick Fields, SALES STORE CHECKER [Advanced Practice Nurse] - (1) Sepsis Qualifiers: Sepsis type: sepsis due to unspecified organism Qualified Code(s): A41.9 - Sepsis, unspecified organism (2) Abscess of skin or subcutaneous tissue Qualifiers: Site of cutaneous abscess: extremity Site of cutaneous abscess of extremity: upper extremity Laterality: left Qualified Code(s): L02.414 - Cutaneous abscess of left upper limb
[2017-12-30] MEDS ORDERED: Aminoglycoside Consult 1 EACH MC ONE (18:16)
[2017-12-31] MEDS: Nicotine 21 MG PATCH.TD24 TD SCH ×2 (00:44→09:15)
[2017-12-31] MEDS: *HR* OxyCODONE Immed Rel 5 MG TABLET PO PRN ×2 (00:45→09:23)
[2017-12-31] MEDS: *HR* Heparin 5,000 UNIT/ML VIAL SQ SCH ×2 (06:29→17:21)
[2017-12-31] MEDS ORDERED: Nicotine 21 MG PATCH.TD24 TD SCH (09:00)
--- NOTE | 2017-12-31 13:31 | Discharge Summary ---
- NOTES TO OUTPATIENT PROVIDER Notes to Outpatient Provider: Patient with history of IV drug use was admitted for left elbow abscess/forearm cellulitis and myositis. Also concerning for compartment syndrome due to numbness and poor radial pulse. Underwent urgent I& D on 12/27, intraop wound culture grew Streptococcus intermedius sensitive to ampicillin, levaquin, and zyvox. Additionally, CT also incidentally showed TEOFILO solitary focus of consolidation that may represent mild pneumonia or possible developing septic emboli. However, TTE did not show any vegetation and repeat blood cultures remained -ve for 4 days. He was advised to remain inpatient for possible BAN and monitoring of his blood cultures but adamantly requested to go home. Since he is afebrile, hemodynamic stable with resolving leukocytosis, he will be discharged on PO augmentin for 7 more days and to follow up with repeat CT in 3-4 weeks to see resolution of TEOFILO consolidation -> if not, he may need to be evaluated for endocarditis. Orders not resulted at time of discharge: Pending orders 12/27/17 21:27 Culture,Blood [BC] Stat 12/27/17 23:24 Culture,Anaerobic [RM] Routine Date of Encounter: 12/31/17 Time of Encounter: 08:45 - Discharge Diagnosis (1) Sepsis Priority: Primary Status: Acute Qualifiers: Sepsis type: sepsis due to unspecified organism Qualified Code(s): A41.9 - Sepsis, unspecified organism (2) Abscess of skin or subcutaneous tissue Priority: Secondary Status: Inactive Qualifiers: Site of cutaneous abscess: extremity Site of cutaneous abscess of extremity : upper extremity Laterality: left Qualified Code(s): L02.414 - Cutaneous abscess of left upper limb (3) Substance abuse Priority: Secondary Status: Inactive (4) DVT prophylaxis Priority: Secondary Status: Acute Hospital course: Mr. Price is a 37 year old male with history of IV drug use was admitted for left elbow abscess/forearm cellulitis and myositis. Also concerning for compartment syndrome due to numbness and poor radial pulse. Underwent urgent I& D on 12/27, intraop wound culture grew Streptococcus intermedius sensitive to ampicillin, levaquin, and zyvox. Additionally, CT also incidentally showed TEOFILO solitary focus of consolidation that may represent mild pneumonia or possible developing septic emboli. However, TTE did not show any vegetation and repeat blood cultures remained -ve for 4 days. He was advised to remain inpatient for possible BAN and monitoring of his blood cultures but adamantly requested to go home after being treated with IV vanc/zosyn for 3-4 days. Since he remained afebrile, hemodynamic stable, with resolving leukocytosis, he will be discharged on PO augmentin for 7 more days and to follow up with repeat CT in 3- 4 weeks to see resolution of TEOFILO consolidation -> if not, he may need to be evaluated for endocarditis. HE will follow up with orthopedics as outpatient ( waiting for a return page for appointment). Also advised him to return to the ED if he develops fever, SOB, hemoptysis, or worsening arm pain/drainiage. Discharge discussed with: patient, nurse, social work - Time Spent with Patient Total time spent providing and/or coordinating discharge services: Greater than 30 minutes - Discharge Medications Prescriptions: Acetaminophen [Tylenol] 650 mg PO Q6HR PRN #20 tablet PRN Reason: Pain Amoxicillin/Clavulanate [Augmentin] 875 mg PO BIDWM 7 Days #14 tablet Home Medications: Acetaminophen [Tylenol] 650 mg PO Q6HR PRN #20 tablet 12/31/17 [Rx] Amoxicillin/Clavulanate [Augmentin] 875 mg PO BIDWM 7 Days #14 tablet 12/31/17 [ Rx] Allergies/Adverse Reactions: 3 Allergy/AdvReac Type Severity Reaction Status Date / Time sulfamethoxazole Allergy Anaphylaxis Verified 06/19/15 14:27 [From Bactrim] trimethoprim [From Bactrim] Allergy Anaphylaxis Verified 06/19/15 14:27 Date of admission: 12/27/17 20:21 Primary care physician: PCP NONE Consults: 12/27/17 20:27 Consult to Physician [CONS] Routine Consulting Provider: Heber Kaur Reason for Consult: elbow abscess/sepsis Time Notified: 20:27 Call Completed: Yes 12/30/17 09:27 Consult to [employer]ek [employer] Manager [CONS] Routine Reason for SW Consult: Pt with possible need for 14 day course of CASSIDY upon d/ c with IVD use hx - will need arragement for treatment - Constitutional Vitals: Temp Pulse Resp BP Pulse Ox 97.9 F 88 18 94/58 98 12/31/17 12:06 12/31/17 12:06 12/31/17 12:06 12/31/17 12:06 12/31/17 12:06 General appearance: Present: cooperative, A&O X 3, severe distress (left elbow/ forearm pain), answers questions appropriately Exam: General appearance: Present: cooperative, A&O X 3 - Respiratory Respiratory exam: Present: CTAB. Absent: chest wall tenderness, rales, rhonchi , wheezes - Cardiovascular Cardiovascular exam: Present: distant heart sounds, RRR, +S1, +S2, tachycardia. Absent: diastolic murmur, systolic murmur - GI/Abdominal GI/Abdominal exam: Present: normal bowel sounds, soft. Absent: hepatomegaly, mass, splenomegaly, tenderness - Extremities Exam LUE: in sling, dressing clean and intact. Neurovascularly intact. - Patient Status Disposition: Home, Self-Care Condition: Fair Functional capacity at discharge: independent ambulation Overall status at discharge: patient is progressing back to baseline - Discharge Instructions Instructions: Sepsis (DC) Follow Up With: NONE,PCP [Primary Care Provider] - Erick Fields, DIETARY AID [Advanced Practice Nurse] - - Diet and Activity Activity: resume usual activities as tolerated Diet: advance to your usual diet - VTE Documentation of Mechanical Device: Graduated compression elastic hosiery
[2017-12-31 16:41] VITALS: BP 120/87
== END 2017-12-31 18:17 | disposition home or self-care (01) | DRG 710 ==
LOC: 2NNU → SUATTDRO 20:21 → 2ANU 12-29 10:27
PROVIDERS: ADMIT Internal Medicine; ATTEND Internal Medicine